=== PATIENT | female | born 1960 | race Caucasian/White ===

== ENCOUNTER → 2018-10-12 | Outpatient (CLI) | payer OTHER ==
[~2018-10-12] MED LIST: ACETAMINOPHEN-1 EAC1 PO; CEPHALEXIN 500500 M3 PO; CLEOCIN HCL150 MG PO; HYDROCODONE-AP1 EAC6 PO; MEDROLDOSEPACK PO; METHOTREXATE 22.5 MG PO; PROTONIX40 M1 PO; SULFAMETHOXAZO1 EAC1 PO; UNITHROID100 MCG PO; ZOFRAN ODT4 MG PO
[2018-10-12 10:39] LABS: ALBUMIN 3.5 g/dL (3.4-5.0); CALCIUM 9.2 mg/dL (8.5-10.1); CREATININE 0.8 mg/dL (0.6-1.3); POTASSIUM 4.1 mmol/L (3.5-5.1); TOTAL BILIRUBIN 0.1 mg/dL (<0.1-1.0); TOTAL PROTEIN 7.3 g/dL (6.4-8.2)
== END ==
LOC: M.LAB 09:54
PROVIDERS: Family Medicine
DX: E03.9 Hypothyroidism, unspecified (principal)